=== PATIENT | male | born 1985 | race Caucasian/White ===

== ENCOUNTER → 2020-05-10 10:02 | Outpatient (CLI) | payer BC, SELFPAY ==
--- NOTE | 2020-05-10 10:21 | XR_ITS ---
PROCEDURE: XR CHEST PORTABLE CLINICAL HISTORY: COVID TESTING COMPARISON: No exams were available for comparison FINDINGS: The cardiomediastinal silhouette and pulmonary vascularity are within normal limits. The lungs are clear without infiltrates, suspicious nodules, or pleural effusions. No acute bony abnormalities. IMPRESSION: No acute findings. Dictated by: Dr. Orlando Jamil MD 05/10/2020 10:[address] Orlando Jamil MD in [place] 05/10/2020 10:55
[2020-05-12 07:00] LABS: Covid-19 Nasal PCR Sendout Lex NOT DETECTED
== END ==
PROVIDERS: PCP Family Medicine; Visit Provider Family Medicine
DX: Z20.828 Contact with and (suspected) exposure to other viral communicable diseases (principal)
CPT/HCPCS: 71045; U0004

== ENCOUNTER → 2020-05-12 14:07 | Outpatient (CLI) | payer BC, SELFPAY ==
[2020-05-12 14:10] LABS: Adenovirus F 40/41, stool Not Detected (NotDetected); Astrovirus Not Detected (NotDetected); Campylobacter Not Detected (NotDetected); Cyclospora Cayetanesis Not Detected (NotDetected); Entamoeba histolytica Not Detected (NotDetected); Enteroaggregative E coli Not Detected (NotDetected); Enteropathogenic E coli Not Detected (NotDetected); Enterotoxigenic E coli Not Detected (NotDetected); Giardia lamblia Not Detected (NotDetected); Norovirus Not Detected (NotDetected); Plesimonas Shigalloides, PCR Not Detected (NotDetected); Rotavirus A Not Detected (NotDetected); Salmonella, PCR Not Detected (NotDetected); Sapovirus Not Detected (NotDetected); Shiga-like toxin E coli Not Detected (NotDetected); Shigella Enterovasive E coli Not Detected (NotDetected); Vibrio Cholerae Not Detected (NotDetected); Vibrio, PCR Not Detected (NotDetected); Yersinia Entercolitica, PCR Not Detected (NotDetected)
[2020-05-12 20:52] LABS: Clostridium Difficile A/B, PCR Detected (NotDetected); Cryptosporidium Detected (NotDetected)
== END ==
PROVIDERS: Visit Provider Family Medicine
DX: R19.7 Diarrhea, unspecified (principal); A04.72 Enterocolitis due to Clostridium difficile, not specified as recurrent; A07.2 Cryptosporidiosis
CPT/HCPCS: 87507

== ENCOUNTER → 2020-11-11 10:44 | Outpatient (CLI) | payer BC, SELFPAY | PROVIDERS: Visit Provider Family Medicine | DX: R19.7 Diarrhea, unspecified (principal); R59.0 Localized enlarged lymph nodes; Z86.19 Personal history of other infectious and parasitic diseases | CPT/HCPCS: 87045; 87493 ==

== ENCOUNTER → 2020-11-17 12:42 | Outpatient (CLI) | payer BC, SELFPAY ==
--- NOTE | 2020-11-17 12:48 | US_ITS ---
PROCEDURE: US SOFT TISSUE HEAD AND NECK CLINICAL INDICATION: CERVICAL LYMPHADENOPATHY COMPARISON: No exams were available for comparison FINDINGS: Ultrasounds performed on both sides of the neck. There is a palpable abnormality reported on the left. This corresponds to a mildly prominent submandibular gland. No fluid collections are evident. There are few small left cervical lymph nodes. Few small nodes are present on the right as well. IMPRESSION: Palpable abnormality corresponds to mildly prominent left submandibular gland. Dictated by: Mike Dos Santos MD 11/17/2020 17:26 Mike Dos Santos MD in [facility] 11/17/2020 17:26
== END ==
PROVIDERS: PCP Family Medicine; Visit Provider Nurse Practitioner Family
DX: R59.0 Localized enlarged lymph nodes (principal)
CPT/HCPCS: 76536

== ENCOUNTER → 2023-01-03 10:44 | Outpatient (CLI) | payer BC, SELFPAY ==
--- NOTE | 2023-01-03 11:14 | US_ITS ---
FINAL REPORT TECHNIQUE: Ultrasound images of the testicles were obtained bilaterally. Color Doppler images were obtained. CLINICAL HISTORY: PAIN RIGHT FINDINGS: The testicles are normal in size and echotexture bilaterally. Arterial flow is identified bilaterally. The right epididymal head is somewhat enlarged measuring 1.2 cm, right epididymitis is not excluded. There are small hydroceles bilaterally. There is a 6 mm hypoechoic focus in the scrotum on the right anteriorly with a nonspecific appearance but does not appear to be a cyst. It is uncertain if this represents the palpable abnormality. IMPRESSION: Possible right epididymitis. Hypoechoic focus on the right. It is uncertain if this represents the palpable abnormality. If indicated, follow-up ultrasound may be helpful. Reviewed, Interpreted and Dictated by Agustin Felipe III, MD Transcribed by Loli Watson Authenticated and [facility]
== END ==
PROVIDERS: PCP Nurse Practitioner Family; Visit Provider Nurse Practitioner Family
DX: N50.811 Right testicular pain (principal)
CPT/HCPCS: 76870